=== PATIENT | female | born 1965 | race Two or more races ===

== ENCOUNTER 2020-03-03 16:06 | Emergency (ER) | payer OTHER ==
[~2020-03-03] VITALS: Ht 165.1 cm; Wt 73.5 kg
[2020-03-03 16:15] VITALS: Ht 165.1 cm; Wt 73.5 kg
[2020-03-03 17:23] VITALS: BP 217/111
== END 2020-03-03 17:23 | disposition home or self-care (01) ==
LOC: ED 16:06
DX: I10 Essential (primary) hypertension (principal); N39.0 Urinary tract infection, site not specified; Z98.890 Other specified postprocedural states